=== PATIENT | female | born 1940 | race Caucasian/White ===

== ENCOUNTER 2019-04-09 11:06 | Inpatient (IN) | payer MEDICAID ==
[2019-04-09] MEDS: SODIUM CHLORIDE 0.9% 1L BAG IV* (11:36)
[2019-04-09 11:45] LABS: ADD MAN DIFF? NO
[2019-04-09 11:46] LABS: WHITE BLOOD COUNT 19.7 10^3/ul (4.8-10.8)
[2019-04-09 11:46] LABS: ABNORMAL IP MESSAGE 1; BASOPHIL # 0.1 10^3/ul (0.0-0.1); BASOPHILS % 0.4 % (0.0-2.0); EOSINOPHILS # 0.3 10^3/ul (0.0-0.5); EOSINOPHILS % 1.4 % (0.0-7.0); HEMATOCRIT 40.7 % (37.0-47.0); LYMPHOCYTES # 1.8 10^3/ul (0.8-2.9); LYMPHOCYTES % 9.2 % (15.0-51.0); MEAN CORPUSCULAR HEMOGLOBIN 24.4 pg (29.0-33.0); MEAN CORPUSCULAR HGB CONC 31.9 g/dl (32.0-37.0); MEAN CORPUSCULAR VOLUME 76.5 fl (82.0-101.0); MEAN PLATELET VOLUME 10.4 fl (7.4-10.4); MONOCYTE # 1.7 10^3/ul (0.3-0.9); MONOCYTES % 8.5 % (0.0-11.0); NEUTROPHIL # 15.8 10^3/ul (1.6-7.5); PLATELET COUNT 366 10^3/UL (140-415); RED BLOOD COUNT 5.32 10^6/ul (4.20-5.40); RED CELL DISTRIBUTION WIDTH 13.4 % (11.5-14.5)
[2019-04-09 11:56] LABS: POSITIVE DIFF @See below
[2019-04-09] MEDS: CEFEPIME 1GM/50 ML (PMX) 50 ML IVPB (12:00)
[2019-04-09 12:10] LABS: INR 1.04; PROTIME 13.7 Sec (11.9-14.9); PT RATIO 1.1
[2019-04-09 12:12] LABS: ALANINE AMINOTRANSFERASE 19 IU/L (13-69); ALBUMIN/GLOBULIN RATIO 1.08; ALKALINE PHOSPHATASE 136 IU/L (42-121); ANION GAP 16 (5-13); ASPARTATE AMINO TRANSFERASE 21 IU/L (15-46); BILIRUBIN,INDIRECT 0.4 mg/dl (0-1.1); BILIRUBIN,TOTAL 0.4 mg/dl (0.2-1.3); BLOOD UREA NITROGEN 25 mg/dl (7-20); CALCIUM 8.7 mg/dl (8.4-10.2); CARBON DIOXIDE 22 mmol/L (21-31); CHLORIDE 97 mmol/L (97-110); CREATININE 1.69 mg/dl (0.44-1.00); GLUCOSE 301 mg/dl (70-220); POTASSIUM 4.4 mmol/L (3.5-5.1); SODIUM 135 mmol/L (135-144); TOTAL PROTEIN 7.7 g/dl (6.1-8.1)
[2019-04-09 12:13] LABS: PARTIAL THROMBOPLASTIN TIME 28.7 Sec (23.0-35.0)
[2019-04-09 12:22] LABS: TROPONIN-I < 0.012 ng/ml (0.000-0.120)
[2019-04-09] MEDS: KETOROLAC 15 MG INJ IV (12:40)
[2019-04-09] MEDS: ACETAMINOPHEN 325 MG TAB PO (12:40)
[2019-04-09] MEDS: VANCOMYCIN 1 GM (PMX) 250 ML IVPB (12:41)
[2019-04-09 13:54] LABS: ADD UMIC YES; UR ASCORBIC ACID NEGATIVE (NEGATIVE); UR BACTERIA MANY /HPF (NONE SEEN); UR BILIRUBIN (Dip) NEGATIVE (NEGATIVE); UR BLOOD (Dip) 1+ mg/dL (NEGATIVE); UR CLARITY SLIGHTLY CLOUDY (CLEAR); UR COLOR YELLOW (YELLOW); UR GLUCOSE (Dip) NEGATIVE (NEGATIVE); UR KETONES (Dip) NEGATIVE (NEGATIVE); UR LEUKOCYTE ESTERASE (Dip) 2+ Leu/ul (NEGATIVE); UR MUCUS FEW /HPF (NONE SEEN); UR NITRITE (Dip) POSITIVE (NEGATIVE); UR RBC 2 /HPF (0-5); UR SQUAMOUS EPITHELIAL CELL MODERATE /HPF (FEW); UR TOTAL PROTEIN (Dip) NEGATIVE (NEGATIVE); UR TRANSITIONAL EPI CELL FEW /HPF (NONE SEEN); UR UROBILINOGEN (Dip) NEGATIVE (NEGATIVE); UR WBC 18 /HPF (0-5)
[2019-04-09] MEDS ORDERED: ONDANSETRON 4 MG INJ IV ×2 (15:00→15:30)
[2019-04-09] MEDS ORDERED: ACETAMINOPHEN 325 MG TAB PO (15:00)
[2019-04-09 15:24] LABS: LACTIC ACID 2.5 mmol/L (0.5-2.0)
[2019-04-09] MEDS ORDERED: GLUCOSE GEL 15 GRAM TUBE PO ×2 (15:30)
[2019-04-09] MEDS ORDERED: NACL 0.9% 3 ML SYG IV (15:30)
[2019-04-09] MEDS ORDERED: HYDROCODONE/APAP (5/325) TAB PO (15:30)
[2019-04-09] MEDS ORDERED: ALBUTEROL/IPRATROPIUM (NEB) 3 ML AMP HHN (15:30)
[2019-04-09] MEDS ORDERED: MAGNESIUM HYDROXIDE 30ML CUP PO (15:30)
[2019-04-09] MEDS ORDERED: GLUCOSE GEL 15 GRAM TUBE BUCCAL (15:30)
[2019-04-09] MEDS ORDERED: GLUCAGON 1 MG INJ IM (15:30)
[2019-04-09] MEDS ORDERED: DOCUSATE SODIUM 100 MG CAP PO (15:30)
[2019-04-09] MEDS ORDERED: DEXTROSE 50% 50 ML SYRINGE IV ×2 (15:30)
[2019-04-09] MEDS ORDERED: NITROGLYCERIN (SL) 0.4 MG TAB SL (15:30)
[2019-04-09] MEDS ORDERED: LORAZEPAM 2 MG INJ IV (15:30)
[2019-04-09 16:06] LABS: LACTIC ACID 2.3 mmol/L (0.5-2.0)
[2019-04-09] MEDS: INSULIN ASPART [NOVOLOG] 3 ML PEN SC ×2 (17:00→21:16)
[2019-04-09] MEDS: SOD CHLORIDE 0.45% 1,000 ML IV (18:22)
[2019-04-09] MEDS: morphine 2 MG INJ IV (19:21)
[2019-04-09 20:26] LABS: IRON 40 ug/dl (35-150)
[2019-04-09 20:36] LABS: % IRON SATURATION 14 % SAT (22-52); TOTAL IRON BINDING CAPACITY 290 ug/dl (241-421)
[2019-04-09 20:37] LABS: LACTIC ACID 2.7 mmol/L (0.5-2.0)
[2019-04-09] MEDS: LOPERAMIDE 2 MG CAP PO (21:31)
[2019-04-09 23:38] LABS: LACTIC ACID 1.8 mmol/L (0.5-2.0)
[2019-04-10] MEDS: INSULIN ASPART [NOVOLOG] 3 ML PEN SC ×6 (01:40→20:43)
[2019-04-10] MEDS: ACCU-CHEK XX (01:40)
[2019-04-10] MEDS: SOD CHLORIDE 0.45% 1,000 ML IV ×3 (03:49→20:43)
[2019-04-10 04:13] LABS: WHITE BLOOD COUNT 16.5 10^3/ul (4.8-10.8)
[2019-04-10 04:13] LABS: HEMATOCRIT 33.9 % (37.0-47.0); HEMOGLOBIN 10.9 g/dl (12.0-16.0); MEAN CORPUSCULAR HEMOGLOBIN 24.3 pg (29.0-33.0); MEAN CORPUSCULAR HGB CONC 32.2 g/dl (32.0-37.0); MEAN CORPUSCULAR VOLUME 75.5 fl (82.0-101.0); MEAN PLATELET VOLUME 10.5 fl (7.4-10.4); PLATELET COUNT 298 10^3/UL (140-415); RED BLOOD COUNT 4.49 10^6/ul (4.20-5.40); RED CELL DISTRIBUTION WIDTH 13.6 % (11.5-14.5)
[2019-04-10 04:22] LABS: HEMOGLOBIN A1C 8.6 % (0-5.9)
[2019-04-10 04:29] LABS: LACTIC ACID 1.3 mmol/L (0.5-2.0)
[2019-04-10 04:30] LABS: ADD MAN DIFF? YES; POSITIVE DIFF @See below
[2019-04-10 04:32] LABS: ANION GAP 11 (5-13); BLOOD UREA NITROGEN 24 mg/dl (7-20); CALCIUM 8.2 mg/dl (8.4-10.2); CARBON DIOXIDE 24 mmol/L (21-31); CHLORIDE 103 mmol/L (97-110); CREATININE 1.33 mg/dl (0.44-1.00); GLUCOSE 163 mg/dl (70-220); MAGNESIUM 1.1 mg/dl (1.7-2.5); PHOSPHORUS 3.8 mg/dl (2.5-4.9); SODIUM 138 mmol/L (135-144)
[2019-04-10 04:33] LABS: CHOL/HDL RATIO 4.5 RATIO; HDL CHOLESTEROL 17 mg/dl (33-92); LDL CHOLESTEROL,CALCULATED 32 mg/dl; TRIGLYCERIDES 146 mg/dl (0-149)
[2019-04-10 04:33] LABS: CHOLESTEROL 78 mg/dl (100-200)
[2019-04-10] MEDS: LOPERAMIDE 2 MG CAP PO ×2 (04:57→20:43)
[2019-04-10] MEDS: MAGNESIUM SULFATE 6 GM in DEXTROSE 5% 100 ML IVPB (06:34)
[2019-04-10 08:48] LABS: ANISOCYTOSIS 1+ (0-0); BAND NEUTROPHILS #M 7.2 10^3/ul (0.0-0.6); BAND NEUTROPHILS % (M) 44 % (0-4); BASOPHIL #M 0.1 10^3/ul (0.0-0.0); BASOPHILS % (M) 1 % (0-2); EOSINOPHILS % (M) 1 % (0-7); LYMPHOCYTES #M 3.3 10^3/ul (0.8-2.9); LYMPHOCYTES % (M) 20 % (15-51); MICROCYTOSIS 1+ (0-0); MONOCYTE #M 1.6 10^3/ul (0.3-0.9); MONOCYTES % (M) 10 % (0-11); PLATELET ESTIMATE NORMAL; POIKILOCYTOSIS 1+ (0-0); SEG NEUT #M 5.1 10^3/ul (1.6-7.5); SEGMENTED NEUTROPHILS (M) % 24 % (39-77); SMUDGE%M 15 % (0-0)
[2019-04-10 11:42] LABS: LACTIC ACID 1.1 mmol/L (0.5-2.0)
[2019-04-10 13:36] LABS: FREE T4 (FREE THYROXINE) 1.34 ng/dl (0.78-2.44)
[2019-04-10] MEDS: CEFEPIME 2GM/50 ML (PMX) 50 ML IVPB (13:49)
[2019-04-10 14:47] LABS: ANION GAP 15 (5-13); BLOOD UREA NITROGEN 20 mg/dl (7-20); CALCIUM 8.8 mg/dl (8.4-10.2); CARBON DIOXIDE 20 mmol/L (21-31); CHLORIDE 102 mmol/L (97-110); CREATININE 1.25 mg/dl (0.44-1.00); GLUCOSE 144 mg/dl (70-220); MAGNESIUM 4.1 mg/dl (1.7-2.5); PHOSPHORUS 3.6 mg/dl (2.5-4.9); SODIUM 137 mmol/L (135-144)
[2019-04-11] MEDS: ACCU-CHEK XX (02:00)
[2019-04-11] MEDS: ACETAMINOPHEN 325 MG TAB PO (02:27)
[2019-04-11 05:20] LABS: ADD MAN DIFF? NO
[2019-04-11 05:25] LABS: WHITE BLOOD COUNT 14.6 10^3/ul (4.8-10.8)
[2019-04-11 05:25] LABS: BASOPHIL # 0.1 10^3/ul (0.0-0.1); BASOPHILS % 0.5 % (0.0-2.0); EOSINOPHILS # 0.8 10^3/ul (0.0-0.5); EOSINOPHILS % 5.1 % (0.0-7.0); HEMATOCRIT 36.5 % (37.0-47.0); LYMPHOCYTES # 2.1 10^3/ul (0.8-2.9); LYMPHOCYTES % 14.6 % (15.0-51.0); MEAN CORPUSCULAR HEMOGLOBIN 24.6 pg (29.0-33.0); MEAN CORPUSCULAR HGB CONC 32.9 g/dl (32.0-37.0); MEAN CORPUSCULAR VOLUME 74.8 fl (82.0-101.0); MEAN PLATELET VOLUME 10.4 fl (7.4-10.4); NEUTROPHIL # 10.5 10^3/ul (1.6-7.5); NEUTROPHILS % 72.3 % (39.0-77.0); PLATELET COUNT 385 10^3/UL (140-415); RED BLOOD COUNT 4.88 10^6/ul (4.20-5.40); RED CELL DISTRIBUTION WIDTH 13.4 % (11.5-14.5)
[2019-04-11 05:34] LABS: ANION GAP 13 (5-13); BLOOD UREA NITROGEN 17 mg/dl (7-20); CALCIUM 8.5 mg/dl (8.4-10.2); CARBON DIOXIDE 20 mmol/L (21-31); CHLORIDE 105 mmol/L (97-110); CREATININE 1.14 mg/dl (0.44-1.00); GLUCOSE 141 mg/dl (70-220); POTASSIUM 4.1 mmol/L (3.5-5.1); SODIUM 138 mmol/L (135-144)
[2019-04-11 05:50] LABS: MAGNESIUM 2.3 mg/dl (1.7-2.5)
[2019-04-11] MEDS: SOD CHLORIDE 0.45% 1,000 ML IV ×2 (06:15→17:14)
[2019-04-11] MEDS ORDERED: INSULIN ASPART [NOVOLOG] 3 ML PEN SC (07:00)
[2019-04-11] MEDS: Insulin NOVOLOG SS MILD Algorithm (SS with meals and bedtime) SC ×4 (08:00→21:40)
[2019-04-11] MEDS: hydrALAzine 20 MG INJ IV (11:32)
[2019-04-11] MEDS: CEFEPIME 2GM/50 ML (PMX) 50 ML IVPB (14:15)
[2019-04-11] MEDS: LOSARTAN 50 MG TAB PO (21:37)
[2019-04-12] MEDS: hydrALAzine 20 MG INJ IV ×2 (00:50→12:08)
[2019-04-12] MEDS: ACCU-CHEK XX (02:00)
[2019-04-12] MEDS: SOD CHLORIDE 0.45% 1,000 ML IV ×2 (03:41→13:14)
[2019-04-12 06:11] LABS: ADD MAN DIFF? NO
[2019-04-12 06:23] LABS: BASOPHIL # 0.1 10^3/ul (0.0-0.1); BASOPHILS % 0.8 % (0.0-2.0); EOSINOPHILS # 0.2 10^3/ul (0.0-0.5); HEMATOCRIT 40.3 % (37.0-47.0); LYMPHOCYTES # 1.5 10^3/ul (0.8-2.9); LYMPHOCYTES % 13.9 % (15.0-51.0); MEAN CORPUSCULAR HEMOGLOBIN 24.1 pg (29.0-33.0); MEAN CORPUSCULAR HGB CONC 32.3 g/dl (32.0-37.0); MEAN CORPUSCULAR VOLUME 74.6 fl (82.0-101.0); MEAN PLATELET VOLUME 10.4 fl (7.4-10.4); MONOCYTE # 0.9 10^3/ul (0.3-0.9); MONOCYTES % 8.4 % (0.0-11.0); NEUTROPHIL # 7.8 10^3/ul (1.6-7.5); NEUTROPHILS % 73.9 % (39.0-77.0); PLATELET COUNT 474 10^3/UL (140-415); RED CELL DISTRIBUTION WIDTH 13.5 % (11.5-14.5)
[2019-04-12 06:23] LABS: WHITE BLOOD COUNT 10.6 10^3/ul (4.8-10.8)
[2019-04-12 06:37] LABS: ANION GAP 14 (5-13); BLOOD UREA NITROGEN 15 mg/dl (7-20); CALCIUM 9.3 mg/dl (8.4-10.2); CARBON DIOXIDE 23 mmol/L (21-31); CHLORIDE 100 mmol/L (97-110); CREATININE 1.02 mg/dl (0.44-1.00); GLUCOSE 264 mg/dl (70-220); SODIUM 137 mmol/L (135-144)
[2019-04-12] MEDS: Insulin NOVOLOG SS MILD Algorithm (SS with meals and bedtime) SC ×4 (08:12→20:52)
[2019-04-12] MEDS: LOSARTAN 50 MG TAB PO ×2 (08:54→20:44)
[2019-04-12] MEDS: CEFEPIME 2GM/50 ML (PMX) 50 ML IVPB (12:08)
[2019-04-12] MEDS: ERTAPENEM SODIUM 1 GM in SOD CHLORIDE 0.9% 100 ML IVPB (18:37)
[2019-04-13] MEDS: ACCU-CHEK XX (02:00)
[2019-04-13 06:05] LABS: ADD MAN DIFF? NO
[2019-04-13 06:07] LABS: BASOPHIL # 0.1 10^3/ul (0.0-0.1); BASOPHILS % 1.2 % (0.0-2.0); EOSINOPHILS # 0.7 10^3/ul (0.0-0.5); EOSINOPHILS % 6.4 % (0.0-7.0); HEMATOCRIT 38.1 % (37.0-47.0); HEMOGLOBIN 12.5 g/dl (12.0-16.0); LYMPHOCYTES # 2.5 10^3/ul (0.8-2.9); LYMPHOCYTES % 24.7 % (15.0-51.0); MEAN CORPUSCULAR HEMOGLOBIN 24.1 pg (29.0-33.0); MEAN CORPUSCULAR HGB CONC 32.8 g/dl (32.0-37.0); MEAN CORPUSCULAR VOLUME 73.4 fl (82.0-101.0); MEAN PLATELET VOLUME 9.9 fl (7.4-10.4); MONOCYTE # 1.4 10^3/ul (0.3-0.9); NEUTROPHIL # 5.1 10^3/ul (1.6-7.5); NEUTROPHILS % 49.9 % (39.0-77.0); PLATELET COUNT 479 10^3/UL (140-415); RED BLOOD COUNT 5.19 10^6/ul (4.20-5.40); RED CELL DISTRIBUTION WIDTH 13.5 % (11.5-14.5)
[2019-04-13 06:07] LABS: WHITE BLOOD COUNT 10.1 10^3/ul (4.8-10.8)
[2019-04-13 06:39] LABS: ANION GAP 12 (5-13); BLOOD UREA NITROGEN 14 mg/dl (7-20); CALCIUM 9.6 mg/dl (8.4-10.2); CARBON DIOXIDE 22 mmol/L (21-31); CHLORIDE 103 mmol/L (97-110); CREATININE 1.06 mg/dl (0.44-1.00); GLUCOSE 221 mg/dl (70-220); POTASSIUM 3.9 mmol/L (3.5-5.1); SODIUM 137 mmol/L (135-144)
[2019-04-13] MEDS: Insulin NOVOLOG SS MILD Algorithm (SS with meals and bedtime) SC ×4 (08:23→20:30)
[2019-04-13] MEDS: LOSARTAN 50 MG TAB PO ×2 (09:30→20:24)
[2019-04-13] MEDS: metFORMIN 850 MG TAB PO ×2 (11:53→17:33)
[2019-04-13] MEDS: ERTAPENEM SODIUM 1 GM in SOD CHLORIDE 0.9% 100 ML IVPB (17:51)
[2019-04-14] MEDS: ACCU-CHEK XX (02:14)
[2019-04-14 06:21] LABS: ABNORMAL IP MESSAGE 1; HEMATOCRIT 37.3 % (37.0-47.0); MEAN CORPUSCULAR HEMOGLOBIN 24.2 pg (29.0-33.0); MEAN CORPUSCULAR HGB CONC 32.2 g/dl (32.0-37.0); MEAN CORPUSCULAR VOLUME 75.4 fl (82.0-101.0); MEAN PLATELET VOLUME 10.2 fl (7.4-10.4); PLATELET COUNT 487 10^3/UL (140-415); RED BLOOD COUNT 4.95 10^6/ul (4.20-5.40); RED CELL DISTRIBUTION WIDTH 13.8 % (11.5-14.5)
[2019-04-14 06:21] LABS: WHITE BLOOD COUNT 12.8 10^3/ul (4.8-10.8)
[2019-04-14 06:34] LABS: ADD MAN DIFF? YES; POSITIVE DIFF @See below
[2019-04-14] MEDS: Insulin NOVOLOG SS MILD Algorithm (SS with meals and bedtime) SC ×3 (07:30→11:30)
[2019-04-14 07:51] LABS: ANION GAP 11 (5-13); BLOOD UREA NITROGEN 20 mg/dl (7-20); CALCIUM 9.5 mg/dl (8.4-10.2); CARBON DIOXIDE 23 mmol/L (21-31); CHLORIDE 105 mmol/L (97-110); CREATININE 1.27 mg/dl (0.44-1.00); GLUCOSE 170 mg/dl (70-220); SODIUM 139 mmol/L (135-144)
[2019-04-14] MEDS: LOSARTAN 50 MG TAB PO (10:01)
[2019-04-14 10:05] LABS: ANISOCYTOSIS 1+ (0-0); BAND NEUTROPHILS #M 0.5 10^3/ul (0.0-0.6); BAND NEUTROPHILS % (M) 4 % (0-4); EOSINOPHILS % (M) 4 % (0-7); GIANT THROMBO% (M) 3 % (0-0); LYMPHOCYTES #M 2.5 10^3/ul (0.8-2.9); LYMPHOCYTES % (M) 20 % (15-51); MICROCYTOSIS 1+ (0-0); MONOCYTE #M 1.9 10^3/ul (0.3-0.9); MONOCYTES % (M) 15 % (0-11); MYELOCYTES #M 0.3 10^3/ul (0.0-0.0); MYELOCYTES % (M) 3 % (0-0); PLATELET ESTIMATE NORMAL; POIKILOCYTOSIS 2+ (0-0); POLYCHROMASIA 1+ (0-0); PROMYELOCYTES #M 0.1 10^3/ul (0-0); PROMYELOCYTES % (M) 1 % (0-0); SEG NEUT #M 6.8 10^3/ul (1.6-7.5); SEGMENTED NEUTROPHILS (M) % 53 % (39-77); SMUDGE%M 6 % (0-0)
[2019-04-14] MEDS: metFORMIN 850 MG TAB PO (10:23)
[2019-04-14] MEDS: ERTAPENEM SODIUM 1 GM in SOD CHLORIDE 0.9% 100 ML IVPB (15:50)
== END 2019-04-14 17:15 | disposition home or self-care (01) | DRG 872 ==
LOC: PP2 04-14 06:50 → E/R 11:06 → 6WM 16:17
PROVIDERS: Hospitalist
DX: A41.9 Sepsis, unspecified organism (principal); N39.0 Urinary tract infection, site not specified; R65.20 Severe sepsis without septic shock; E11.9 Type 2 diabetes mellitus without complications; I10 Essential (primary) hypertension; N28.9 Disorder of kidney and ureter, unspecified; M19.90 Unspecified osteoarthritis, unspecified site; B96.20 Unspecified Escherichia coli [E. coli] as the cause of diseases classified elsewhere; Z16.12 Extended spectrum beta lactamase (ESBL) resistance; Z87.440 Personal history of urinary (tract) infections; Z86.73 Personal history of transient ischemic attack (TIA), and cerebral infarction without residual deficits; Z79.84 Long term (current) use of oral hypoglycemic drugs
CPT/HCPCS: 36415; 71045; 80048; 80053; 80061; 81001; 82962; 83036; 83540; 83605; 83735; 84100; 84439; 84443; 84484; 85025; 85610; 85730; 87040-91; 87045; 87075; 87086; 93005; 96365; 96375; 97116; 97162; 97530; 99285-25